=== PATIENT | female | born 1970 | race Hispanic/Latino ===

== ENCOUNTER 2017-02-06 15:22 | Observation (INO) | payer BC ==
[2017-02-06 15:27] VITALS: BP 144/70; PULSE 80; RESP 16; TEMP 98.2; O2SAT 98
--- NOTE | 2017-02-06 15:53 | ED PDOC ---
HPI: Psych/Substance Abuse Chief Complaint (Provider): Crisis evaluation History Per: Patient History/Exam Limitations: no limitations Suicide/Self Injury Attempted (Context): None Modifying Factor(s): None Associated Symptoms: Agitation Additional Complaint(s): The pt is a 46yo female, brought to the ED by Police for evaluation. Pt reports she visited the Police station and informed them that people are harassing her and that there are surveillance cameras in her house. She states she has visited the PD many times and they have done nothing. She reports she has two roommates in her home. She states she feels agitated because the police informed her that she would not have a psych record if she came here. Pt is currently refusing a physical exam. 1602 Patient is cooperating for a physical exam. Reports she had ectopic breast tissue removed form her axilla b/l. <Blanche Huang - Last Filed: 02/06/17 17:13> <Mira Zapata - Last Filed: 02/06/17 19:08> Time Seen by Provider: 02/06/17 15:34 Chief Complaint (Nursing): Psychiatric Evaluation Past Medical History Reviewed: Historical Data, Nursing Documentation, Vital Signs Vital Signs: Last Vital Signs Temp 98.2 F 02/06/17 15:25 Pulse 80 02/06/17 15:25 Resp 16 02/06/17 15:25 BP 144/70 02/06/17 15:25 Pulse Ox 98 02/06/17 15:25 - Medical History PMH: No Chronic Diseases - Surgical History Surgical History: No Surg Hx - Family History Family History: States: Unknown Family Hx <Blanche Huang - Last Filed: 02/06/17 17:13> Vital Signs: Last Vital Signs Temp 98.2 F 02/06/17 15:25 Pulse 80 02/06/17 15:25 Resp 16 02/06/17 15:25 BP 144/70 02/06/17 15:25 Pulse Ox 98 02/06/17 17:14 <Mira Zapata - Last Filed: 02/06/17 19:08> - Home Medications Home Medications: Ambulatory Orders Medication Instructions Recorded Nitrofurantoin Macrocrystals 100 mg PO BID #10 cap 02/06/17 [Macrobid] - Allergies Allergies/Adverse Reactions: Allergies Allergy/AdvReac Type Severity Reaction Status Date / Time No Known Allergies Allergy Verified 02/06/17 15:25 Review of Systems ROS Statement: Except As Marked, All Systems Reviewed And Found Negative Psych: Positive for: Other (agitated) <HuangBlanche david - Last Filed: 02/06/17 17:13> Physical Exam - Reviewed Nursing Documentation Reviewed: Yes Vital Signs Reviewed: Yes - Physical Exam Appears: Positive for: Well, Non-toxic, No Acute Distress Head Exam: Positive for: ATRAUMATIC, NORMAL INSPECTION, NORMOCEPHALIC Skin: Positive for: Normal Color, Warm, DRY Eye Exam: Positive for: Normal appearance Neck: Positive for: Normal, Painless ROM Cardiovascular/Chest: Positive for: Regular Rate, Rhythm Respiratory: Positive for: Normal Breath Sounds. Negative for: Respiratory Distress Neurologic/Psych: Positive for: Alert, Oriented <Blanche Huang - Last Filed: 02/06/17 17:13> - Laboratory Results Result Diagrams: 02/06/17 16:10 02/06/17 16:10 - ECG ECG Rhythm: Positive for: Sinus Bradycardia (@ 49). Negative for: ST/T Changes (no ST/T changes ) O2 Sat by Pulse Oximetry: 98 <Blanche Huang - Last Filed: 02/06/17 17:13> - Laboratory Results Result Diagrams: 02/06/17 16:10 02/06/17 16:10 <Mira Zapata - Last Filed: 02/06/17 19:08> Medical Decision Making Medical Decision Making: Time: 1602 Impression: agitation, paranoia, medical clearance for crisis evaluation Plan: -- Crisis evaluation -- Bloodwork -- CxR -- 1:1 Observation -- EKG -- Reassess Scribe Attestation: Documented by Shawna Chery acting as a scribe for Blanche Huang MD. Provider Attestation: All medical record entries made by the Scribe were at my direction and personally dictated by me. I have reviewed the chart and agree that the record accurately reflects my personal performance of the history, physical exam, medical decision making, and the department course for this patient. I have also personally directed, reviewed, and agree with the discharge instructions and disposition. <Blanche Huang F - Last Filed: 02/06/17 17:13> Medical Decision Making: Patient signed out to me by Dr. Huang as pending psych evaluation. She has a uti but is medically cleared for psychiatric evaluation/admission as her uti is not thought to be contributing to her condition. She has normal wbc and is afebrile and antibiotics were ordered. Patient is resting comfortably and redirectable. She seems paranoid but does not appear to be an acute danger to herself or others and Dr. Araya cleared her for discharge. <Mira Zapata A - Last Filed: 02/06/17 19:08> ED OBSERVATION Date of observation admission: 02/06/17 Time of observation admission: 16:00 - Observation admission statement Patient is being placed in observation because:: Pending medical clearance and crisis evaluation. <Blanche Huang F - Last Filed: 02/06/17 17:13> Discharge: Yes <Mira Zapata - Last Filed: 02/06/17 19:08> Disposition <Blanche Huang F - Last Filed: 02/06/17 17:13> - Disposition Disposition: Routine/Home Disposition Time: 19:05 <Mira Zapata - Last Filed: 02/06/17 19:08> - Clinical Impression Clinical Impression: UTI (urinary tract infection), Adjustment disorder - Disposition Condition: GOOD
[2017-02-06 16:45] LABS: BASO # 0.1 K/uL (0.0-0.2); BASO % 1.1 % (0.0-2.0); EOS # 0.1 K/uL (0.0-0.7); EOS % 1.3 % (0.0-4.0); HEMATOCRIT 39.8 % (34.0-47.0); LYMPH # 1.6 K/uL (1.0-4.3); LYMPH % 20.5 % (20.0-40.0); MEAN CELL VOLUME 97.1 fl (81.0-99.0); MEAN CORPUSCULAR HEMOGLOBIN 32.4 pg (27.0-31.0); MEAN CORPUSCULAR HGB CONC 33.3 g/dL (33.0-37.0); MEAN PLATELET VOLUME 9.4 fl (7.2-11.7); MONO # 0.6 K/uL (0.0-0.8); MONO % 7.7 % (0.0-10.0); NEUT # 5.5 K/uL (1.8-7.0); NEUT % 69.4 % (50.0-75.0); RED CELL DISTRIBUTION WIDTH 13.2 % (11.5-14.5); WHITE BLOOD COUNT 7.9 K/uL (4.8-10.8)
--- NOTE | 2017-02-06 16:50 | RAD ---
HISTORY: Medical clearance COMPARISON: None available. TECHNIQUE: Chest, one view. FINDINGS: LUNGS: No focal consolidation. Please note that chest x-ray has limited sensitivity for the detection of pulmonary masses. PLEURA: No significant pleural effusion identified. No definite pneumothorax . CARDIOVASCULAR: Heart size appears within normal limits. OSSEOUS STRUCTURES: No acute osseous abnormality identified. VISUALIZED UPPER ABDOMEN: Unremarkable. OTHER FINDINGS: None. IMPRESSION: No focal consolidation, significant pleural effusion, or definite pneumothorax identified.
[2017-02-06 16:55] LABS: ALB/GLOB RATIO 1.5 (1.0-2.1); ALCOHOL SERUM < 10 mg/dl (0-10); ALKALINE PHOSPHATASE 48 U/L (38-126); ALT/SGPT 27 U/L (9-52); AST/SGOT 19 U/L (14-36); BILIRUBIN,TOTAL 0.4 mg/dl (0.2-1.3); BLOOD UREA NITROGEN 9 mg/dl (7-17); CALCIUM 9.6 mg/dL (8.4-10.2); CARBON DIOXIDE 21 mmol/L (22-30); CHLORIDE 108 mmol/L (98-107); GFR AFRICAN-AMERICAN > 60; GLUCOSE,RANDOM 94 mg/dL (65-105); POTASSIUM 3.9 MMOL/L (3.6-5.0); SODIUM 141 mmol/l (132-148); TOTAL PROTEIN 7.3 G/DL (6.3-8.2)
[2017-02-06 16:55] LABS: RBC URINE 1 /hpf (0-3); URINE BACTERIA FEW (<OCC); URINE BILIRUBIN NEGATIVE (NEGATIVE); URINE BLOOD LARGE (NEGATIVE); URINE COLOR YELLOW (YELLOW); URINE GLUCOSE (UA) NEG (Normal); URINE KETONE TRACE mg/dL (NEGATIVE); URINE LEUKOCYTE ESTERASE TRACE Leu/uL (Negative); URINE PROTEIN 30 mg/dL (NEGATIVE); URINE UROBILINOGEN 0.2-1.0 mg/dL (0.2-1.0); WBC URINE 7 /hpf (0-5)
--- NOTE | 2017-02-08 11:47 | CARD ---
APPROVED REPORT EKG Measurement Heart [id number] <Conclusion> Sinus bradycardia Otherwise normal ECG
== END 2017-02-06 19:15 | disposition home or self-care (01) ==
LOC: H.ER 15:22 → H.EROBSV 15:48
PROVIDERS: ADMIT Emergency Medicine; ATTEND Emergency Medicine
DX: F43.20 Adjustment disorder, unspecified (principal); N39.0 Urinary tract infection, site not specified
CPT/HCPCS: 71010; 80053; 81003; 81025; 85025; 99282; G0378; G0480